=== PATIENT | male | born 1955 | race Caucasian/White ===

== ENCOUNTER → 2017-02-20 | Outpatient (CLI) | payer OTHER | LOC: MAMO 11-23 08:00 | DX: N63 Unspecified lump in breast (principal) | CPT/HCPCS: G0206 ==

== ENCOUNTER → 2017-03-05 | Outpatient (CLI) | payer OTHER | LOC: EXRD 13:56 | DX: R29.898 Other symptoms and signs involving the musculoskeletal system (principal); M79.645 Pain in left finger(s) | CPT/HCPCS: 73140 ==

== ENCOUNTER → 2017-04-09 | Outpatient (CLI) | payer OTHER | LOC: MRI 09:26 | DX: G45.0 Vertebro-basilar artery syndrome (principal); G31.9 Degenerative disease of nervous system, unspecified | CPT/HCPCS: 70250; 70496; 70498; 70551; J7050; Q9963 ==